=== PATIENT | female | born 1970 | race Caucasian/White ===

== ENCOUNTER 2019-07-28 02:27 | Emergency (ER) | payer BC, OTHER ==
[2019-07-28] MEDS ORDERED: Zithromax 200MG/5 ML LIQUID PO ONE (03:14)
--- NOTE | 2019-07-28 03:14 | ERPHSYRPT ---
- History of Present Illness Time Seen by Provider: 07/28/19 03:12 Source: patient, family Exam Limitations: no limitations Patient Subjective Stated Complaint: pt states that she has had cough/ cold for the past 7 weeks, pt states that she has went to her PCP twice and quick care, pt states that she received a steroid shot with no relief, pt states she now has increased thirst, diarrhea, pt states that she had a strep test done that came back negative, pt states no cxray was done, pt states that she has no strength and is really weak Triage Nursing Assessment: pt ambulated into the er, axo x3, hypertensive, tachycardic, afibrile, clear lung sounds, dry hackying cough, hypoactive bowel sounds, 6/10 pain to epi gastric area Physician History: his of persisting cough , no vomiting, not short of breath , initially had flu symptoms and fever , but not any longer; Timing/Duration: week(s) Cough Quality/Degree: dry cough Possible Cause: no prior episodes Modifying Factors: Improves With: nothing Associated Symptoms: cough International travel in last 2 weeks: No Allergies/Adverse Reactions: epinephrine Allergy (Verified 07/28/19 02:58) Home Medications: Albuterol Common Canister [Ventolin Common Canister] 2 puff .ROUTE Q4H PRN PRN 07/28/19 [History] Hx Tetanus, Diphtheria Vaccination/Date Given: Yes Hx Influenza Vaccination/Date Given: Yes Hx Pneumococcal Vaccination/Date Given: No - Review of Systems Constitutional: No Fever, No Chills Eyes: No Symptoms Ears, Nose, & Throat: No Symptoms Respiratory: Cough, No Dyspnea Cardiac: No Chest Pain, No Edema, No Syncope Abdominal/Gastrointestinal: No Abdominal Pain, No Nausea, No Vomiting, No Diarrhea Genitourinary Symptoms: No Dysuria Musculoskeletal: No Back Pain, No Neck Pain Skin: No Rash Neurological: No Dizziness, No Focal Weakness, No Sensory Changes Psychological: No Symptoms Endocrine: No Symptoms All Other Systems: Reviewed and Negative - Past Medical History Pertinent Past Medical History: No - Past Surgical History Past Surgical History: Yes Female Surgical History: Section - Social History Smoking Status: Never smoker Exposure to second hand smoke: No Drug Use: none Patient Lives Alone: No - Female History Hx Now: No - Nursing Vital Signs Nursing Vital Signs: Initial Vital Signs Temperature 98.5 F 07/28/19 02:33 Pulse Rate 123 H 07/28/19 02:33 Respiratory Rate 15 07/28/19 02:33 Blood Pressure 160/98 07/28/19 02:33 O2 Sat by Pulse Oximetry 96 07/28/19 02:33 Pain Scale Pain Intensity 6 - Physical Exam General Appearance: no apparent distress, alert Eye Exam: PERRL/EOMI, eyes nml inspection Ears, Nose, Throat Exam: normal ENT inspection, TMs normal, pharynx normal, moist mucous membranes Neck Exam: normal inspection, non-tender, supple, full range of motion Respiratory Exam: normal breath sounds, lungs clear, airway intact, No respiratory distress Cardiovascular Exam: regular rate/rhythm, normal heart sounds Gastrointestinal/Abdomen Exam: soft, No tenderness Pelvic Exam: deferred Rectal Exam: deferred Back Exam: normal inspection, No CVA tenderness, No vertebral tenderness Extremity Exam: normal inspection, normal range of motion Neurologic Exam: alert, oriented x 3, cooperative, normal mood/affect, sensation nml, No motor deficits Skin Exam: normal color, warm, dry, No rash Lymphatic Exam: No adenopathy SpO2: 96 - Course Nursing assessment & vital signs reviewed: Yes - Radiology Exams Chest X-ray Interpretation: Reviewed by me, Infiltrates (rml) Ordered Tests: Active Orders 24 hr Category Date Time Status IV Insertion STAT Care 07/28/19 04:37 Active CHEST 2 VIEWS (PA AND LAT) Stat Exams 07/28/19 03:16 Taken Medication Summary Discontinued Medications Generic Name Dose Route Start Last Admin Trade Name Freq PRN Reason Stop Dose Admin Hydrocodone Bitart/Acetaminophen 15 ml 07/28/19 05:02 07/28/19 05:06 Hydrocodone-Acetamin 2.5-108/5 Ml Solution PO 07/28/19 05:03 15 ml STAT STA Administration Hydrocodone Bitart/Acetaminophen Confirm 07/28/19 05:06 Hydrocodone-Acetamin 2.5-108/5 Ml Solution Administered 07/28/19 05:07 Dose 15 ml .ROUTE .STK-MED ONE Azithromycin 200 mg 07/28/19 03:14 07/28/19 03:25 Zithromax 200mg/5 Ml Liquid PO 07/28/19 03:15 200 mg STAT ONE Administration Azithromycin Confirm 07/28/19 03:21 Zithromax 200mg/5 Ml Liquid Administered 07/28/19 03:22 Dose 200 mg .ROUTE .STK-MED ONE Benzonatate 100 mg 07/28/19 05:00 07/28/19 05:08 Tessalon Perles 100 Mg PO 07/28/19 05:01 Not Given STAT ONE Sodium Chloride 1,000 mls @ 999 mls/hr 07/28/19 04:37 07/28/19 04:41 Sodium Chloride 0.9% 1000 Ml IV 07/28/19 05:37 999 mls/hr .Q1H1M STA Administration Sodium Chloride Confirm 07/28/19 04:38 Sodium Chloride 0.9% 1000 Ml Administered 07/28/19 04:39 Dose 1,000 mls @ ud .ROUTE .STK-MED ONE Ceftriaxone Sodium/Dextrose 1 g in 50 mls @ 100 mls/hr 07/28/19 04:58 05:05 Rocephin 1 Gm-D5w 50 Ml Bag IV 07/28/19 05:27 100 mls/hr STAT STA 100 mls/hr Administration Ceftriaxone Sodium/Dextrose Confirm 07/28/19 05:02 Rocephin 1 Gm-D5w 50 Ml Bag Administered 07/28/19 05:03 Dose 1 g in 50 mls @ ud IV .STK-MED ONE Promethazine HCl 50 mg 07/28/19 03:31 07/28/19 03:47 Phenergan 25 Mg Inj IM 07/28/19 03:32 50 mg STAT ONE Administration Promethazine HCl Confirm 07/28/19 03:45 Phenergan 25 Mg Inj Administered 07/28/19 03:46 Dose 50 mg .ROUTE .STK-MED ONE Lab/Rad Data: Laboratory Results 07/28/19 Range/Units Unknown Influenza Type A Ag NEGATIVE (NEGATIVE) Influenza Type B Ag NEGATIVE (NEGATIVE) RSV (PCR) NEGATIVE (Negative) - Progress Progress: improved, re-examined Air Movement: good Progress Note: 07/28/19 04:26 pt is advised to rehydrate and to f/u PCP to consider BP meds; ; she is not short of breath and has good pulse ox on room air and cheryl po well; 135 glucose ; discussed treatment options and that generally this can be treated as outpt, and pt is comfortable to try this initially and will return if not improving and f/u PCP this week for recheck; 07/28/19 04:30 07/28/19 04:45 07/28/19 06:11 pt feels better after fluids and AB and feels ready for DC now; Blood Culture(s) Obtained: No Antibiotics given: Yes Counseled pt/family regarding: lab results, diagnosis, need for follow-up, rad results - Departure Departure Disposition: Home Clinical Impression: RML pneumonia, Persistent cough for 3 weeks or longer Condition: Good Critical Care Time: No Referrals: VIVEK NOVA MD [Primary Care Provider] - Instructions: Pneumonia, Adult (DC), Atypical Pneumonia (Mycoplasma and Viral) (DC) Additional Instructions: see your dr to consider treatment of your blood pressure and to recheck your pneumonia in the next few days, and to consider referral to a lung specialist ( pumonologist) for more workup and optimal treatment of your chronic cough condition ; continue to drink plenty of fluids return meantime if not improving ; Prescriptions: Azithromycin 200 mg/5 ml [Zithromax 200MG/5 ML LIQUID] 200 mg PO DAILY # 60 bottle
[2019-07-28] MEDS ORDERED: Zithromax 200MG/5 ML LIQUID ONE (03:21)
[2019-07-28] MEDS ORDERED: Phenergan 25 MG INJ IM ONE (03:31)
[2019-07-28] MEDS ORDERED: Phenergan 25 MG INJ ONE (03:45)
[2019-07-28 04:06] LABS: INFLUENZA A NEGATIVE (NEGATIVE); INFLUENZA B NEGATIVE (NEGATIVE); RESPIRATORY SYNCTIAL VIRUS NEGATIVE (Negative)
[2019-07-28] MEDS ORDERED: Sodium Chloride 0.9% 1000 ML 1,000 ML IV STA (04:37)
[2019-07-28] MEDS ORDERED: Sodium Chloride 0.9% 1000 ML 1,000 ML ONE (04:38)
[2019-07-28] MEDS ORDERED: ROCEPHIN 1 Gm-D5w 50 ml Bag** 1 G/50 ML IVPB IV STA (04:58)
[2019-07-28] MEDS ORDERED: Tessalon Perles 100 MG PO ONE (05:00)
[2019-07-28] MEDS ORDERED: HYDROCODONE-ACETAMIN 2.5-108/5 ML SOLUTION PO STA (05:02)
[2019-07-28] MEDS ORDERED: ROCEPHIN 1 Gm-D5w 50 ml Bag** 1 G/50 ML IVPB IV ONE (05:02)
[2019-07-28] MEDS ORDERED: HYDROCODONE-ACETAMIN 2.5-108/5 ML SOLUTION ONE (05:06)
[2019-07-28 05:16] VITALS: PULSE 106
[2019-07-28 07:04] VITALS: BP 119/73; O2SAT 95
--- NOTE | 2019-07-28 08:49 | XRAY ---
Indication: Cough. URI. Comparison: None PA/lateral chest demonstrates subtle right infrahilar infiltrate versus atelectasis and tiny right apical calcified granuloma. Remaining heart and left lung normal. Bony thorax intact with mild double curvature scoliosis.
== END 2019-07-28 06:40 | disposition home or self-care (01) ==
LOC: ED 02:27
DX: J18.9 Pneumonia, unspecified organism (principal); R05 Cough
CPT/HCPCS: 71046; 82962; 87631; 96360; 96365; 96372; 99284; J0696; J2550; A9270-GY